=== PATIENT | female | born 1975 | race Caucasian/White ===

== ENCOUNTER 2025-01-12 09:08 | Emergency (ER) | payer BC, SELFPAY ==
[2025-01-12 09:18] VITALS: BP 135/95
--- NOTE | 2025-01-12 10:06 | ED.MUSCINJ ---
HPI-Injury
General
Chief Complaint: Fall
Source: patient
Exam Limitations: none
Time Seen by Provider: 01/12/25 10:01
History of Present Illness-Injury
Initial Injury comments:
49-year-old female presents with worsening headache and neck pain as well as low back yesterday. She slipped on oil on a parking lot and fell backwards hitting her head. She is unsure if she lost consciousness. She was seen at the urgent care
today and sent here for imaging. She is not anticoagulated. The head has a generalized headache with midline neck pain. No numbness or weakness to the arms or legs.
Phy Exam
Physical Exam
Physical Exam:
General: Well appearing female NAD
HEENT: NC/AT
Heart RRR, no murmurs
Lungs; CTA
Musculoskeletal exam: The patient is tender over the midline of the cervical spine superiorly. As well as the lower lumbar spine. She has good range of motion to the extremities
Neurologic exam: Pupils equal round reactive to light ambulatory conversing appropriately good strength to the upper and lower extremities
Injury Course
Orders/Labs/Results
Orders:
Orders
01/12/25 10:05
CT Cervical Spine W/o Iv Contr Urgent
Comment:
Reason For Exam: fall, neck pain
CT Head W/o Iv Contrast Urgent
Comment:
Reason For Exam: fall
CR Lumbar Spine 2 Or 3 Views Urgent
Comment:
Reason For Exam: fall, pain
MDM/Problems Addressed
Differential Diagnosis Includes:
Slip and fall backwards with worsening headache and neck pain. Sent in from urgent care for imaging. Neurologically she is intact. Consider contusion versus neck strain versus fracture. Will obtain CT of head and cervical spine
*Pulse Oximetry
SaO2: 98
Oxygen Mode of Delivery: Room air
Patient hypoxic: no
*Critical Care Note
Total Time (30-74mins, 75-104mins- exclusive of procedures): Not Applicable
Update Note
Update Note:
CT of head and cervical spine negative for acute traumatic injury. Lumbar spine x-rays negative. Suspect muscular strain. Recommend rest and Motrin. Stable for discharge
ED Attending Note
-
Portions of this chart may have been created with voice recognition software.� Occasional wrong word or��sound alike� substitutions may have occurred due to the inherent limitations of voice recognition software.
Discharge Plan
Departure
Patient Disposition: Home (Routine Discharge)
Date of Disposition: 01/12/25
Time of Disposition: 10:50
Patient with high blood pressure during this ER visit?: No
Discharge Problem:
Cervical strain
Referrals:
Disha Toribio MD [Family Provider, Internal Medicine]
Activity Restrictions/Additional Instructions:
Rest. Use ibuprofen or Tylenol for pain. Use warm compresses to the neck. Return if worse otherwise follow-up with your doctor
Interventions
Interventions:
*Risk Screen - Suicide Last Done: 01/12/25 09:18
*General Assessment Last Done: 01/12/25 09:18
*Neglect/Abuse Screening Last Done: 01/12/25 09:18
ED-Musculoskeletal Assessment Last Done: 01/12/25 10:06
ED- Neurological Assessment Last Done: 01/12/25 10:06
ED-Skin Assessment Last Done: 01/12/25 10:06
Discharge Date and Time
Print Language: SWAZI
== END 2025-01-12 11:00 | disposition home or self-care (01) ==
LOC: EMR 09:08
PROVIDERS: EMERGENCY PHYSICIAN Emergency Medicine; FAMILY PHYSICIAN Internal Medicine
DX: S16.1XXA Strain of muscle, fascia and tendon at neck level, initial encounter (principal); W01.0XXA Fall on same level from slipping, tripping and stumbling without subsequent striking against object, initial encounter
CPT/HCPCS: 99284; 70450; 72100; 72125